=== PATIENT | female | born 1930 | race Caucasian/White ===

== ENCOUNTER 2017-03-12 10:37 | Emergency (ER) | payer OTHER ==
[~2017-03-12] VITALS: Ht 162.6 cm; Wt 81.7 kg
--- NOTE | ~2017-03-12 | EKG ---
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: [id number] : 1930 Requested By: Quan Buckley Order Number: [id number] MD: Wilver Huang Measurements Intervals [place] Rate: 63 P: [place]: QRS: -57 QRSD: 80 T: 22 QT: 404 QTc: 414 Interpretive Statements Atrial fibrillation Inferior infarct, old Anterior infarct, old Compared to ECG 04/07/2010 10:18:45 No significant changes Electronically Signed On 03-13-2017 7:37:12 CDT by Wilver Huang [email or web address] <ELECTRONICALLY SIGNED> By: Wilver Huang MD, [facility] 03/13/17 0737 D: 07/1113 111 Wilver Huang MD, FACC /EPI
[~2017-03-12 10:37] MED LIST: ALPRAZOLAM; ALPRAZOLAM 0.50.5 MG PO; ATENOLOL; ATENOLOL 25 MG25 M1 PG; COUMADIN 2.5MG2.5 M1 PO; COUMADIN 5 MG TA5 M1 PO; CRESTOR; CRESTOR10 MG PO; HYDROCHLOROTHIA25 M2 GT; KLOR-CON 1010 MEQ PO; LOPRESSOR25; NORCO 5-325 TA1 EACH PO; POTASSIUM20 PO; RESTASIS1 EACH OPHTHALMIC; ZESTRIL10 MG PO
[2017-03-12 11:33] LABS: ABSOLUTE NEUTROPHILS 5.7 thou/uL (1.4-8.2); BASOPHILS 0.3 % (0.0-2.0); EOSINOPHILS 0.4 % (0.0-3.0); HEMOGLOBIN 14.1 gm/dL (12.0-15.0); LYMPHOCYTES 10.6 % (24.0-44.0); MCH 32.5 pg (26.0-34.0); MCHC 33.5 g/dL (28.0-37.0); PLATELET COUNT 186 thou/uL (150-400); POLYS 81.7 % (36.0-66.0); RBC 4.33 mil/uL (4.20-5.00); RDW 13.3 % (10.5-14.5); WBC 6.9 thou/uL (4.0-11.0)
[2017-03-12 11:40] LABS: MANUAL DIFF NO
[2017-03-12 11:42] LABS: ANION GAP 8 mmol/L (7-16); BUN 12 mg/dL (7-18); CALCIUM 8.9 mg/dL (8.5-10.1); CHLORIDE 104 mmol/L (98-107); CO2 26 mmol/L (21-32); CREATININE 0.9 mg/dL (0.6-1.0); GLUCOSE 103 mg/dL (74-106); POTASSIUM 3.8 mmol/L (3.5-5.1); SODIUM 138 mmol/L (136-145)
[2017-03-12 11:54] LABS: NT-PRO BRAIN NAT PEPTIDE 835 pg/mL (<300); TROPONIN-I < 0.04 ng/mL (<0.04-0.07)
[2017-03-12 12:14] LABS: ALBUMIN 3.7 g/dL (3.4-5.0); DIRECT BILIRUBIN 0.1 mg/dL (<0.1-0.3); TOTAL BILIRUBIN 0.7 mg/dL (<0.1-1.0); TOTAL PROTEIN 6.7 g/dL (6.4-8.2)
[2017-03-12 12:17] LABS: APTT 38.7 Seconds (24.5-32.8); PROTIME 30.3 Seconds (9.3-11.4)
[2017-03-12 12:53] LABS: URINE BILIRUBIN NEGATIVE (Negative); URINE BLOOD TRACE (Negative); URINE COLOR YELLOW; URINE GLUCOSE-RANDOM* NEGATIVE (Negative); URINE KETONES NEGATIVE (Negative); URINE NITRITE NEGATIVE (Negative); URINE PROTEIN (DIPSTICK) NEGATIVE (Negative); URINE SPECIFIC GRAVITY <= 1.005 (1.003-1.035); URINE UROBILINOGEN 0.2 E.U./dl (0.2-1.0)
[2017-03-12] MEDS ORDERED: ONDANSETRON HCL4 M2 PO (14:09)
[2017-03-12] MEDS ORDERED: ULTRAM 50MG TAB50 MG PO (14:15)
== END 2017-03-12 14:39 | disposition home or self-care (01) ==
LOC: ER 10:37
PROVIDERS: Nurse Practitioner
DX: K80.50 Calculus of bile duct without cholangitis or cholecystitis without obstruction (principal); I10 Essential (primary) hypertension; I48.91 Unspecified atrial fibrillation; Z86.73 Personal history of transient ischemic attack (TIA), and cerebral infarction without residual deficits; Z98.890 Other specified postprocedural states; Z88.0 Allergy status to penicillin

== ENCOUNTER → 2017-06-12 | Outpatient (CLI) | payer OTHER ==
[~2017-06-12] MED LIST changes: +ONDANSETRON HCL4 M2 PO; +ULTRAM 50MG TAB50 MG PO
== END ==
LOC: NUC 07:00
DX: I25.119 Atherosclerotic heart disease of native coronary artery with unspecified angina pectoris (principal)

== ENCOUNTER 2017-09-14 08:30 | Inpatient (IN) | payer OTHER ==
[~2017-09-14] VITALS: Ht 162.6 cm; Wt 79.5 kg
--- NOTE | ~2017-09-14 | HC ---
[facility] [place] [address] CONSULTATION Name: LAVERN SCHULTE Room #: 213-P [facility] IN M.R.#: [id number] Admission: 09/14/17 Attend Phys: Lucho Gotti DO Discharge: 09/16/17 Date of : 30 Report #: [id number] THIS REPORT FOR: //name// CC: Lucho Stacy MD DATE OF SERVICE: 09/14/2017 TYPE OF REPORT: Cardiology consultation. HISTORY OF PRESENT ILLNESS: The patient is an 87-year-old single white female who was asked to see in the hospital today because of atrial fibrillation. The history is obtained from the patient as well as from some old records. The patient has a history of permanent atrial fibrillation and has been chronically anticoagulated. She has been followed by my partner, Dr. Shipman. She apparently has never been cardioverted. She had a previous echocardiogram in 2011 that showed an ejection fraction of 55% with mild tricuspid insufficiency. She actually underwent a nuclear stress test in May of this year. Resting images showed a small anterior defect. Post-stress, there was a small anterior defect that seen to be more prominent. This is felt to represent a small area of anterior ischemia. Ejection fraction was normal. She apparently has never had a heart catheterization. She is not very active because of her age and uses a walker. She has fallen in the past but denies a history of bleeding. The patient notes that last week she did not feel well and was having fever and sore throat. She was given a Z-DANII. She noticed today she felt lightheaded and weak. Her son was brought to the emergency room and she was admitted. She denied any chest pain, shortness of breath, palpitations, syncope and increasing edema. PAST MEDICAL HISTORY: Otherwise significant for appendectomy, lumpectomy from her breast. 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 She has had a hysterectomy. She has had cataract extraction. She has a history of hypertension. MEDICATIONS: Consist of spironolactone, warfarin, hydrocodone for knee pain, Xanax as needed, lisinopril and metoprolol. ALLERGIES: She has an allergy to PENICILLIN. FAMILY HISTORY: Her brother of a heart attack. SOCIAL HISTORY: She is , lives by herself in [place], [place]. No smoking or alcohol abuse. REVIEW OF SYSTEMS: She has had no history of stroke, asthma, peptic ulcer [facility] [address] [place] [address] CONSULTATION Name: LAVERN SCHULTE Room #: 213-P [facility] IN [facility].#: [id number] Admission: 09/14/17 Attend Phys: Lucho Gotti DO Discharge: 09/16/17 Date of : 30 Report #: [id number] disease, liver disease, kidney disease, cancer, psychiatric illness or chronic skin condition. PHYSICAL EXAMINATION: GENERAL: Revealed an elderly frail appearing female lying in bed. She appeared in no acute distress. VITAL SIGNS: She had a blood pressure of 110/70, pulse is 60. She is afebrile. HEENT: She is anicteric. Conjunctivae pink. Mucous membranes appear dry. NECK: Veins do not appear distended. CHEST: Clear to auscultation. CARDIAC: Irregular rhythm, grade 2 holosystolic murmur at the apex. ABDOMEN: Soft. EXTREMITIES: Had no edema. Dorsalis pedis pulse 1+ bilaterally. SKIN: Cool and dry. NEUROLOGICAL: Nonfocal. RADIOLOGICAL DATA: Her ECG showed atrial fibrillation with slow ventricular response rate and septal Q-waves. Her workup today in the Emergency Room, she had a portable chest x-ray that showed cardiomegaly, small effusion and atelectasis. She actually had a CT scan of the head without contrast that showed no acute abnormality with atrophy. LABORATORY DATA: Sodium 139, potassium 4.4, creatinine 1.0 and glucose 94. Liver function studies were normal. Troponin 0.04. BNP 599. INR 2.3. White blood cell count 7.3 and hemoglobin 14.5. TSH 0.8. Urinalysis negative protein, negative blood, rare wbc's and few bacteria. IMPRESSION AND RECOMMENDATIONS: 1. Atrial fibrillation. Rate noted to be slow. I would recommend discontinuing metoprolol. If she develops symptomatic bradycardia, she would require a pacemaker. The patient is chronically anticoagulated. However, she continues to fall, I would consider the patient high risk for warfarin and consider stopping warfarin. 2. Fatigue. Reason unclear. Possible rate is slow atrial fibrillation. 3. Hypertension. The patient has been on a beta gil. She apparently was on an angiotensin-converting enzyme inhibitor in the past. 4. History of tuberculosis, previous thoracotomy. 5. Degenerative joint disease with chronic knee pain. 7. Abnormal nuclear stress test. No history of angina. Recommend a conservative approach. <ELECTRONICALLY SIGNED> By: Sai Olmos MD, FACC 09/17/17 1603 1734 0527 Sai Olmos MD, FACC /nt
--- NOTE | ~2017-09-14 | EKG ---
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
[2017-09-14 08:58] VITALS: BP 128/77
[2017-09-14] MEDS ORDERED: XANAX 0.5 MG0.5 MG (10:40)
[2017-09-14] MEDS ORDERED: ALDACTONE25 MG PO (10:41)
[2017-09-14 11:29] LABS: ABSOLUTE NEUTROPHILS 5.4 thou/uL (1.4-8.2); BASOPHILS 0.6 % (0.0-2.0); EOSINOPHILS 0.3 % (0.0-3.0); HEMATOCRIT 43.7 % (37.0-47.0); HEMOGLOBIN 14.5 gm/dL (12.0-15.0); LYMPHOCYTES 18.9 % (24.0-44.0); MCH 31.8 pg (26.0-34.0); MCHC 33.1 g/dL (28.0-37.0); MCV 96.1 fL (80.0-100.0); MONOCYTES 5.9 % (1.0-8.0); PLATELET COUNT 169 thou/uL (150-400); POLYS 74.3 % (36.0-66.0); RBC 4.55 mil/uL (4.20-5.00); RDW 13.9 % (10.5-14.5); WBC 7.3 thou/uL (4.0-11.0)
[2017-09-14 11:38] LABS: ANION GAP 8 mmol/L (7-16); BUN 22 mg/dL (7-18); CALCIUM 9.9 mg/dL (8.5-10.1); CHLORIDE 102 mmol/L (98-107); CO2 29 mmol/L (21-32); GLUCOSE 94 mg/dL (74-106); POTASSIUM 4.4 mmol/L (3.5-5.1); SODIUM 139 mmol/L (136-145)
[2017-09-14 11:44] LABS: INR 2.3; PROTIME 23.6 Seconds (9.3-11.4)
[2017-09-14 11:47] LABS: ALBUMIN 4.1 g/dL (3.4-5.0); DIRECT BILIRUBIN 0.2 mg/dL (<0.1-0.3); LIPASE 220 U/L (73-393); SGOT 21 U/L (15-37); SGPT 26 U/L (30-65); TOTAL BILIRUBIN 0.9 mg/dL (<0.1-1.0); TOTAL PROTEIN 7.4 g/dL (6.4-8.2); TROPONIN-I < 0.04 ng/mL (<0.06)
[2017-09-14 11:48] LABS: URINE BILIRUBIN NEGATIVE (Negative); URINE BLOOD NEGATIVE (Negative); URINE CLARITY CLEAR; URINE COLOR YELLOW; URINE GLUCOSE-RANDOM* NEGATIVE (Negative); URINE KETONES NEGATIVE (Negative); URINE LEUKOCYTES NEGATIVE (Negative); URINE NITRITE NEGATIVE (Negative); URINE PROTEIN (DIPSTICK) NEGATIVE (Negative); URINE SPECIFIC GRAVITY <= 1.005 (1.005-1.035); URINE UROBILINOGEN 0.2 E.U./dl (0.2-1.0)
[2017-09-14 15:26] VITALS: BP 153/77
[2017-09-14 16:02] VITALS: BP 107/48
[2017-09-14 16:20] VITALS: BP 130/70
[2017-09-14] MEDS ORDERED: COUMADIN 5 MG TA5 M1 PO (17:28)
[2017-09-14] MEDS ORDERED: COUMADIN 2.5MG2.5 M1 PO (17:29)
[2017-09-14 19:50] VITALS: BP 94/53
[2017-09-15 00:45] VITALS: BP 119/42
[2017-09-15 04:30] VITALS: BP 136/70
[2017-09-15 07:05] VITALS: BP 107/78
[2017-09-15 07:14] LABS: PROTIME 21.7 Seconds (9.3-11.4)
[2017-09-15 07:15] LABS: INR 2.1
[2017-09-15 11:10] VITALS: BP 125/86
[2017-09-15 15:45] VITALS: BP 134/50
[2017-09-15 19:45] VITALS: BP 141/63
[2017-09-16 04:30] VITALS: BP 151/81
[2017-09-16 07:15] VITALS: BP 157/99
[2017-09-16 11:25] VITALS: BP 146/86
[2017-09-16 12:49] VITALS: BP 146/86
== END 2017-09-16 14:21 | disposition home health service (06) | DRG 312 ==
LOC: ER 08:30 → EROBS 12:12 → 2N 16:03
PROVIDERS: Family Medicine; Nurse Practitioner
DX: I95.1 Orthostatic hypotension (principal); I10 Essential (primary) hypertension; G89.29 Other chronic pain; I48.91 Unspecified atrial fibrillation; M17.10 Unilateral primary osteoarthritis, unspecified knee; Z86.73 Personal history of transient ischemic attack (TIA), and cerebral infarction without residual deficits; Z90.49 Acquired absence of other specified parts of digestive tract; Z88.0 Allergy status to penicillin; Z79.899 Other long term (current) drug therapy; Z98.49 Cataract extraction status, unspecified eye; Z82.49 Family history of ischemic heart disease and other diseases of the circulatory system; Z79.01 Long term (current) use of anticoagulants
CPT/HCPCS: 10081

== ENCOUNTER 2017-12-03 07:17 | Inpatient (IN) | payer OTHER ==
[~2017-12-03] VITALS: Ht 152.4 cm; Wt 85.3 kg
--- NOTE | ~2017-12-03 | HC ---
[facility] [place] [address] CONSULTATION Name: LAVERN SCHULTE Room #: 356-P ADM IN M.R.#: [id number] Admission: 12/03/17 Attend Phys: Lucho Gotti DO Discharge: Date of : 30 Report #: [id number] THIS REPORT FOR: //name// CC: Lucho Stacy DATE OF SERVICE: 12/04/2017 INPATIENT CONSULTATION REASON FOR CONSULTATION: Atrial fibrillation and high blood pressure. HISTORY OF PRESENT ILLNESS: The patient is an 87-year-old female with a history of persistent atrial fibrillation, who presented with confusion and hypertension. There were no specific complaints of palpitations or heart racing. Her blood pressure was moderately elevated. She is anticoagulated with warfarin and her INR was only 1.8. There was concern she might have had a stroke. So, Neurology was consulted, but ultimately, MRIs and CTs were unremarkable for the presence of acute CVA. At this point in time, she is undergoing neuropsychiatric testing for just dementia. From a cardiovascular standpoint, she is without complaints of chest pain or pressure. Her lead developer, Dr. Olmos, has her on warfarin. Her atrial fibrillation is well controlled. She denies orthopnea or PND. PAST MEDICAL HISTORY: Persistent atrial fibrillation, history of remote TIA and anticoagulation with warfarin. PAST SURGICAL HISTORY: Appendectomy and partial laminectomy. HOME MEDICATIONS: Warfarin 2.5 mg, cyclosporine, hydrocodone and alprazolam p.r.n. ALLERGIES: SHE HAS ALLERGIES TO PENICILLIN. SOCIAL HISTORY: She is a nonsmoker. REVIEW OF SYSTEMS: CONSTITUTIONAL: Denies fever or chills. [facility] [address] [place] [address] CONSULTATION Name: LAVERN SCHULTE Room #: 356- ADM IN M.R.#: [id number] Admission: 12/03/17 Attend Phys: Lucho Gotti DO Discharge: Date of : 30 Report #: [id number] NEUROLOGIC: Positive confusion. No focal complaints of headaches, blurry vision or slurred speech. No seizures. HEENT: No hearing changes. GASTROINTESTINAL: No abdominal pain or nausea. No hematemesis or melena. GENITOURINARY: No dysuria or hematuria. MUSCULOSKELETAL: Denies any joint pain or swelling. PHYSICAL EXAMINATION: VITAL SIGNS: Blood pressure on presentation 180/108, pulse is 61 and pulse ox 100% on room air. GENERAL: This is a thin elderly woman. She is alert, confused. Poor historian. HEENT: Eyes, EOMs intact. No facial asymmetry. NECK: Supple. No jugular venous distention. CARDIOVASCULAR EXAMINATION: Irregular. LUNGS: Clear to auscultation. There are no rales. ABDOMEN: Nontender. EXTREMITIES: There is no peripheral edema. There is peripheral wasting. DIAGNOSTIC DATA: Electrocardiogram demonstrates AFib, nonspecific ST-segment changes. LABORATORY DATA: Sodium 140, potassium 3.8, BUN 18 and creatinine 0.9. INR is 1.8. Hemoglobin is 14.9. CT shows moderate cerebral atrophy, no acute cerebral process. MRI of the head, mild age-appropriate cerebral volume loss and izeydbni-iy-vkxroj confluent periventricular white matter chronic microvascular ischemia. No acute infarction. Moderate atrophy. IMPRESSION AND PLAN: 1. Atrial fibrillation. She is rate controlled and asymptomatic. We will continue with a rate-control strategy. 2. Hypertension. Overnight, her blood pressure has improved. I will continue with the current medical therapy. 3. Oral anticoagulation. At this point in time, given that her neurologic workup was unremarkable for acute cerebrovascular accident or hemorrhage, I think we should still continue warfarin, but if she is a fall risk, this will need to be readdressed. 4. Dementia. My understanding is that she is being evaluated for this is the likely etiology of her symptoms. By: [id number] Hayder Yeboah MD, FACC /nt
--- NOTE | ~2017-12-03 | HC ---
[facility] [place] [address] CONSULTATION Name: LAVERN SCHULTE Room #: 356- ADM IN M.R.#: [id number] Admission: 12/03/17 Attend Phys: Lucho Gotti DO Discharge: Date of : 30 Report #: [id number] THIS REPORT FOR: //name// CC: Lucho Stacy DATE OF SERVICE: 12/03/2017 HISTORY OF PRESENT ILLNESS: This is an 87-year-old female patient who was admitted because the patient was confused. She was not sure what the duration is. It looks like that it was going on for several days and then became worse. It came spontaneously without any trauma. It became worse. There is no aggravating or relieving factors for that. REVIEW OF SYSTEMS: Indicate that this patient has pain in the knee and the back. She takes medication. She has to take hydrocodone for a long time. It is not clear how much hydrocodone she was taking. She lives by herself and takes her own medication. She has a history of atrial fibrillation. She is on Coumadin. She has a history of IA. This was her relevant 14-point review of system, which I carried out, but she had multiple other things like musculoskeletal problems, history of orthostatic hypertension, hypertensive encephalopathy, biliary problem. She feels back to her baseline and the family also thinks that she has improved and she was worse when she got up this morning. She is not complaining of any new eye, ENT, respiratory, GI, , musculoskeletal, constitutional, dermatological, hematological, psychiatric, throat, allergic, endocrine symptom associated with present symptomatology. PAST MEDICAL HISTORY: Negative for this kind of confusion. FAMILY HISTORY: Negative for early age stroke. SOCIAL HISTORY: She lives by herself and takes her own medication. She does not drink alcohol or smoke. PHYSICAL EXAMINATION: Indicate she is alert. She is responsive. She is oriented. Her memory and fund of knowledge is back to her baseline. Cranial nerve examination 2-12 looks unremarkable. Strength, sensation, reflexes and tone look symmetrical. There is no cerebellar sign. I could not have a good look at the patient's fundus. She is moderately built individual who does not have any dysmorphic features of eyes, ears and face. Her vision and hearing looks adequate. There is no thyroid mass. Cardiac examinations indicate she has a history of atrial fibrillation, no respiratory difficulty or rhonchi. She has no edema, cyanosis or jaundice. Pulses appeared to be palpable. Blood pressure was high when she came in, but is 125/65. Respirations 12, pulse is 67, temperature is 98.0. [address] [address] CONSULTATION Name: LAVERN SCHULTE Room #: [address] [address] IN M.R.#: [id number] Admission: 12/03/17 Attend Phys: Lucho Gotti DO Discharge: Date of : 30 Report #: [id number] LABORATORY DATA: White count is 5.7. She had a CT angiogram, which was reviewed and that looked unremarkable. She had an MRI of the brain, which does not show any acute abnormality. IMPRESSION: The patient's altered mental status was most likely secondary to systemic problems. I think she may have had hypertensive encephalopathy. Other systemic problems need to be worked up and I will defer that evaluation and management to you. Her TSH and vitamin B12 is normal. RECOMMENDATIONS: I will get an EEG done in this patient. If EEG is okay, I do not think any further neurological workup is indicated. In that circumstance, I will recommend doing the systemic workup to evaluate any etiology for the patient's symptoms. I will look at the EEG, but will follow up only if EEG is abnormal, otherwise I will suggest continue to workup for systemic causes. Thank you very much for this referral. By: [id number] Nawaf Linder MD /nt
--- NOTE | ~2017-12-03 | EEG ---
[facility] [place] [address] ELECTROENCEPHALOGRAM Name: LAVERN SCHULTE Room #: 356-P ADM IN M.R.#: [id number] Admission: 12/03/17 Attend Phys: Lucho Gotti DO Discharge: Date of : 30 Report #: [id number] THIS REPORT FOR: //name// CC: Lucho Stacy DATE OF SERVICE: 12/04/2017 This patient is being evaluated for altered mental status. EEG was done by placing the electrodes by standard 10-20 system of electrode placement. Both referential and sequential montages were used for recording. Background activity in this patient's EEG is about 11 Hz and 40 microvolt. This background activity is symmetrical. Photic stimulation is unremarkable. This patient became drowsy and that is associated with bilateral slowing. Throughout the record, no active epileptiform activity was noticed. IMPRESSION: This patient's EEG is unremarkable. Thank you very much for this referral. By: 17 24 Nawaf Linder MD /sulema
--- NOTE | ~2017-12-03 | HC ---
[facility] [place] [address] CONSULTATION Name: LAVERN SCHULTE Room #: 356- ADM IN M.R.#: [id number] Admission: 12/03/17 Attend Phys: Lucho Gotti DO Discharge: Date of : 30 Report #: [id number] THIS REPORT FOR: //name// CC: Lucho Stacy DATE OF SERVICE: 12/04/2017 HISTORY OF PRESENT ILLNESS: The patient is an 87-year-old white female with history of atrial fibrillation on chronic anticoagulation, admitted with acute mental status changes. She also was noted to have severe back pain and knee pain. She was hypertensive, blood pressure 179/109. With the back discomfort she has been taking more hydrocodone and the family was decreasing that. CT of the head showed moderate atrophy. MRI of the brain was negative. She was seen by Neurology thought to have had a hypertensive encephalopathy. Her lumbar spine was imaged and showed multilevel lumbar spondylosis. She was seen by Cardiology and is noted to be a higher risk with her atrial fibrillation and they are recommending continuing with the Coumadin for now, although if she becomes even more of a fall risk, this may need to be readdressed. She does have some wounds to bilateral feet. We are seeing her in rehabilitation medicine consultation. PAST MEDICAL HISTORY: Includes history of hypertension, unstable gait. She has had a history of a left torn meniscus and has had intermittent steroid injections through [facility] with Orthopedics. ALLERGIES: PENICILLIN. PAST SURGICAL HISTORY: Also includes appendectomy, fibroid tumors removed. Apparently a history of tuberculosis. ALLERGIES: PENICILLIN. HABITS: No history of tobacco or alcohol abuse. SOCIAL HISTORY: Lives alone, ranch style house, one step in. There are 3 children that live close by. She did not utilize gait aids, but has used a HurryCane. REVIEW OF SYSTEMS: Did not offer any current complaints of chest pain, shortness of breath, abdominal discomfort. PHYSICAL EXAMINATION: GENERAL: An 87-year-old white female, pleasant, somewhat verbose in no obvious distress. VITAL SIGNS: Last recorded temperature 97.3, pulse 61, respirations 22, blood [facility] [address] [place] [address] CONSULTATION Name: LAVERN SCHULTE JO Room #: 356-P [facility] IN M.R.#: [id number] Admission: 12/03/17 Attend Phys: Lucho Gotti DO Discharge: Date of : 30 Report #: [id number] pressure 146/102. NEUROLOGIC: She is alert, pleasant. Facies appeared symmetric. Follows basic 1 step commands. Tends to defer a number of her answers to her son. EOMs appeared to be intact. EXTREMITIES: She has functional range of motion of both upper extremities with some decrease at end range. Strength is grade 3+ to 4-/5. Lower extremities, no focal calf swelling. She does have chronic degenerative changes of both of her knees. Tone appeared to be intact. Strength is probably a grade 3+ to 4-/5. She was min assist with sit to stand. Gait was 180 feet min assist front-wheeled walker. She does have some decreased balance some inconsistent step length, cues for walker direction. ASSESSMENT: An 87-year-old white female with the following problems: 1. Hypertensive encephalopathy. 2. History of gait instability. 3. Chronic atrial fibrillation, continuing on Coumadin anticoagulation. 4. Multilevel lumbar spondylosis with recent severe back pain. 5. Left knee degenerative arthritis with prior history of a torn meniscus per patient's son. Apparently Orthopedics was considering arthroscopic surgery for this. 6. Hypertension. 7. History of atrial fibrillation, continuing on Coumadin. 8. Wounds to bilateral feet. PLAN: Insurance will be checked regarding an acute in-hospital inpatient rehabilitation stay. The family obviously, would like to have her be safer and get around better with appropriate assessment of gait aid, fall prevention, improvement in endurance and strength as well as ADLs. She does live alone as noted above. Insurance issues will be checked regarding an acute rehab stay and will be glad to follow along with you. By: [id number] Sai Mario MD /BALBIR
--- NOTE | ~2017-12-03 | EKG ---
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
[~2017-12-03 07:17] MED LIST changes: +ALDACTONE25 MG PO; +XANAX 0.5 MG0.5 MG
[2017-12-03 07:18] VITALS: BP 179/108
[2017-12-03 07:53] LABS: ABSOLUTE NEUTROPHILS 3.5 thou/uL (1.4-8.2); BASOPHILS 0.5 % (0.0-2.0); EOSINOPHILS 0.7 % (0.0-3.0); HEMATOCRIT 44.2 % (37.0-47.0); HEMOGLOBIN 14.9 gm/dL (12.0-15.0); MCH 31.9 pg (26.0-34.0); MCHC 33.8 g/dL (28.0-37.0); MCV 94.4 fL (80.0-100.0); MONOCYTES 6.3 % (1.0-8.0); PLATELET COUNT 231 thou/uL (150-400); POLYS 62.5 % (36.0-66.0); RBC 4.68 mil/uL (4.20-5.00); RDW 13.7 % (10.5-14.5); WBC 5.7 thou/uL (4.0-11.0)
[2017-12-03] MEDS ORDERED: HYDROCODONE-AP1 EAC6 PO (07:56)
[2017-12-03 08:05] LABS: CALCIUM 9.4 mg/dL (8.5-10.1); CREATININE 0.9 mg/dL (0.6-1.0); POTASSIUM 3.8 mmol/L (3.5-5.1)
[2017-12-03 08:07] LABS: INR 1.8; PROTIME 18.3 Seconds (9.3-11.4)
[2017-12-03 10:42] LABS: URINE BILIRUBIN NEGATIVE (Negative); URINE BLOOD NEGATIVE (Negative); URINE CLARITY CLEAR; URINE COLOR YELLOW; URINE GLUCOSE-RANDOM* NEGATIVE (Negative); URINE KETONES NEGATIVE (Negative); URINE LEUKOCYTES-REFLEX NEGATIVE (Negative); URINE NITRITE-REFLEX NEGATIVE (Negative); URINE PROTEIN (DIPSTICK) NEGATIVE (Negative); URINE UROBILINOGEN 0.2 E.U./dl (0.2-1.0)
[2017-12-03 11:54] LABS: TSH 1.95 uIU/mL (0.358-3.740)
[2017-12-03 12:26] LABS: FOLIC ACID 37.5 ng/mL (8.6-58.9)
[2017-12-03 13:49] VITALS: BP 142/69
[2017-12-03 16:29] VITALS: BP 126/65
[2017-12-03 16:56] VITALS: BP 126/65
[2017-12-03 20:00] VITALS: BP 142/83
[2017-12-04 01:10] VITALS: BP 159/71
[2017-12-04 04:50] VITALS: BP 153/93
[2017-12-04 08:44] VITALS: BP 146/102
[2017-12-04 12:41] VITALS: BP 120/79
[2017-12-04 15:34] VITALS: BP 155/87
[2017-12-04 19:39] VITALS: BP 157/77
[2017-12-05 04:13] VITALS: BP 153/105
[2017-12-05 05:51] LABS: ALBUMIN 3.7 g/dL (3.4-5.0); CALCIUM 9.2 mg/dL (8.5-10.1); CREATININE 0.9 mg/dL (0.6-1.0); MAGNESIUM 2.1 mg/dL (1.8-2.4); PHOSPHORUS 3.5 mg/dL (2.5-4.9); POTASSIUM 4.2 mmol/L (3.5-5.1); TOTAL BILIRUBIN 0.8 mg/dL (<0.1-1.0); TOTAL PROTEIN 6.6 g/dL (6.4-8.2)
[2017-12-05 08:00] VITALS: BP 150/102
[2017-12-05 12:00] VITALS: BP 135/82
[2017-12-05 20:03] VITALS: BP 130/82
[2017-12-06 07:00] VITALS: BP 138/76
[2017-12-06] MEDS ORDERED: VITAMIN D2000 UNIT PO (11:14)
[2017-12-06] MEDS ORDERED: VOLTAREN GEL 1100 G2 TOP (11:14)
[2017-12-06] MEDS ORDERED: MIRALAX17 GM PO (11:14)
[2017-12-06] MEDS ORDERED: VITAMIN B-12500 MCG PO (11:14)
[2017-12-06] MEDS ORDERED: TYLENOL EXTRA500 MG PO (11:20)
== END 2017-12-06 19:41 | DRG 78 ==
LOC: ER 07:17 → 3W 08:46 → EROBS 08:46 → 3W 17:00 → SICU 12-05 18:36
PROVIDERS: Emergency Medicine; Nurse Practitioner; Registered Nurse
DX: I67.4 Hypertensive encephalopathy (principal); I48.1 Persistent atrial fibrillation; I10 Essential (primary) hypertension; F03.90 Unspecified dementia, unspecified severity, without behavioral disturbance, psychotic disturbance, mood disturbance, and anxiety; M17.12 Unilateral primary osteoarthritis, left knee; M47.896 Other spondylosis, lumbar region; Z60.2 Problems related to living alone; M62.84 Sarcopenia; Z66 Do not resuscitate; R29.6 Repeated falls; S83.242A Other tear of medial meniscus, current injury, left knee, initial encounter; Z86.73 Personal history of transient ischemic attack (TIA), and cerebral infarction without residual deficits; Z90.49 Acquired absence of other specified parts of digestive tract; Z88.0 Allergy status to penicillin; Z79.01 Long term (current) use of anticoagulants
CPT/HCPCS: 10779; 15002

== ENCOUNTER 2018-02-10 15:35 | Inpatient (IN) | payer OTHER ==
[~2018-02-10] VITALS: Ht 162.6 cm; Wt 74.5 kg
[~2018-02-10 15:35] MED LIST changes: +HYDROCODONE-AP1 EAC6 PO; +MIRALAX17 GM PO; +TYLENOL EXTRA500 MG PO; +VITAMIN B-12500 MCG PO; +VITAMIN D2000 UNIT PO; +VOLTAREN GEL 1100 G2 TOP
[2018-02-10] MEDS ORDERED: NITROGLYCERIN0.4 MG SUBLING (15:48)
[2018-02-10] MEDS ORDERED: GAS RELIEF80 MG PO (15:49)
[2018-02-10] MEDS ORDERED: COLACE100 MG PO (15:50)
[2018-02-10] MEDS ORDERED: ROBITUSSIN COU237 M2 PO (15:52)
[2018-02-10 17:53] LABS: URINE BILIRUBIN NEGATIVE (Negative); URINE BLOOD TRACE (Negative); URINE CLARITY CLEAR; URINE COLOR YELLOW; URINE GLUCOSE-RANDOM* NEGATIVE (Negative); URINE KETONES NEGATIVE (Negative); URINE NITRITE-REFLEX NEGATIVE (Negative); URINE PROTEIN (DIPSTICK) NEGATIVE (Negative); URINE UROBILINOGEN 0.2 E.U./dl (0.2-1.0)
[2018-02-10 17:55] LABS: URINE LEUKOCYTES-REFLEX TRACE (Negative)
[2018-02-10 18:40] VITALS: BP 172/70
[2018-02-10 18:44] LABS: HEMOGLOBIN 13.8 gm/dL (12.0-15.0); MCH 31.8 pg (26.0-34.0); MCHC 32.9 g/dL (28.0-37.0); MCV 96.7 fL (80.0-100.0); RBC 4.35 mil/uL (4.20-5.00); RDW 14.7 % (10.5-14.5); WBC 6.1 thou/uL (4.0-11.0)
[2018-02-10 18:51] LABS: CALCIUM 9.1 mg/dL (8.5-10.1); CREATININE 0.9 mg/dL (0.6-1.0); POTASSIUM 3.8 mmol/L (3.5-5.1)
[2018-02-10 18:57] LABS: ALBUMIN 3.8 g/dL (3.4-5.0); TOTAL BILIRUBIN 0.4 mg/dL (<0.1-1.0); TOTAL PROTEIN 6.9 g/dL (6.4-8.2)
[2018-02-10 18:58] LABS: INR 1.6; PROTIME 15.9 Seconds (9.3-11.4)
[2018-02-10 19:15] VITALS: BP 172/70
[2018-02-10 19:25] VITALS: BP 146/87
[2018-02-10 20:00] VITALS: BP 117/64
[2018-02-11] VITALS: BP 149/62
[2018-02-11 04:00] VITALS: BP 155/83
[2018-02-11 08:03] VITALS: BP 160/80
[2018-02-11 16:20] VITALS: BP 166/70
[2018-02-11 20:01] VITALS: BP 127/65
[2018-02-12 03:34] VITALS: BP 141/69
[2018-02-12 07:50] VITALS: BP 150/74
[2018-02-12] MEDS ORDERED: NORCO 5-325 TA1 EACH PO (12:59)
[2018-02-12] MEDS ORDERED: FLOMAX0.4 MG PO (13:07)
[2018-02-12 13:39] VITALS: BP 141/86
[2018-02-12 15:36] VITALS: BP 146/90
[2018-02-12 19:50] VITALS: BP 147/70
[2018-02-13 03:45] VITALS: BP 151/77
[2018-02-13 07:15] VITALS: BP 164/77
== END 2018-02-13 11:40 | DRG 543 ==
LOC: ER 15:35 → 4N 17:05 → EROBS 17:05 → 4N 19:09
PROVIDERS: Emergency Medicine; Nurse Practitioner
DX: M80.851A Other osteoporosis with current pathological fracture, right femur, initial encounter for fracture (principal); E46 Unspecified protein-calorie malnutrition; S32.591A Other specified fracture of right pubis, initial encounter for closed fracture; W01.0XXA Fall on same level from slipping, tripping and stumbling without subsequent striking against object, initial encounter; I10 Essential (primary) hypertension; Z66 Do not resuscitate; I65.29 Occlusion and stenosis of unspecified carotid artery; K59.00 Constipation, unspecified; G89.29 Other chronic pain; M54.5 Low back pain; R26.81 Unsteadiness on feet; I48.91 Unspecified atrial fibrillation; Y93.89 Activity, other specified; Y92.89 Other specified places as the place of occurrence of the external cause; Y99.8 Other external cause status; Z90.49 Acquired absence of other specified parts of digestive tract; Z79.01 Long term (current) use of anticoagulants; Z88.0 Allergy status to penicillin; Z86.73 Personal history of transient ischemic attack (TIA), and cerebral infarction without residual deficits; Z68.28 Body mass index [BMI] 28.0-28.9, adult
CPT/HCPCS: 10091

== ENCOUNTER → 2018-07-08 | Outpatient (CLI) | payer OTHER ==
[~2018-07-08] MED LIST changes: +COLACE100 MG PO; +FLOMAX0.4 MG PO; +GAS RELIEF80 MG PO; +NITROGLYCERIN0.4 MG SUBLING; +ROBITUSSIN COU237 M2 PO
== END ==
LOC: MRI 14:37
DX: M75.121 Complete rotator cuff tear or rupture of right shoulder, not specified as traumatic (principal); M25.411 Effusion, right shoulder